=== PATIENT | female | born 1965 | race Caucasian/White ===

== ENCOUNTER 2018-05-28 11:25 | Emergency (ER) | payer MEDICARE, OTHER ==
[~2018-05-28] VITALS: Ht 162.6 cm; Wt 60.0 kg
[~2018-05-28 11:25] MED LIST: ACCU CHEK FASTCLIX XX; ACCU-CHEK; ACCU-CHEK AVIVAP100; AMOXICILLIN500 MG OR; AMOXICILLIN875 MG PO; BENADRY2 EX; BENADRYL 50MG C50 MG OR; BUSPAR15 MG PO; BUSPIRONE10 MG PO; CHERATUSSIN OR; CIPROFLOXACN500 MG PO; CLONAZEP ODT0.25 MG OR; CLONAZEPAM0.5 MG PO; CLONAZEPAM1 MG PO; FLUOXETINE20 MG PO; FLUOXETINE40 MG PO; GABAPENTIN300 MG PO; GLUCOSE TEST STRIPS; HUMALOG100 UNIT/M; HUMULIN 70/30 SC; HUMULIN PEN SC; HUMULIN R1 M1 SC; HYDROCORTISO2.51 EX; HYDROXYZ HCL25 MG PO; LANCETS SC; LANTUS100 UNIT/M SC; LEVEMIR1000 UNITS SC; LISINOPRIL2.5 MG PO; LORAZEPAM1 MG PO; MEDDOSEPAK PO; ONE TOUCH ULTRA 100 SC; PEN NEEDLES SC; PROZAC20 MG PO; SOLU-MEDROL125 MG IM; TRIAMCINOLON0.11 EX; TYLENOL # 31 TA1 PO; VENTOLIN HFA IN; ZOFRAN ODT4 MG OR; [UNRECOGNIZED DRUG - REMARK]
[2018-05-28] MEDS ORDERED: FLUOXETINE10 M2 PO (11:55)
[2018-05-28] MEDS ORDERED: ATORVASTATIN CA10 MG PO (11:55)
[2018-05-28] MEDS ORDERED: ASPIRIN 81 LOW81 MG PO (11:56)
[2018-05-28] MEDS ORDERED: SINGULAIR10 MG PO (11:57)
[2018-05-28] MEDS ORDERED: TRAZODONE50 MG PO (11:57)
[2018-05-28] MEDS ORDERED: NOVOLIN R100 UNIT/M (11:58)
[2018-05-28 12:14] LABS: HEMATOCRIT 37.7 % (37.0-47.0); HEMOGLOBIN 12.3 g/dl (12.0-16.0); IMMATURE GRANULOCYTES 0.4 % (0.0-5.0); MEAN CELL VOLUME 94.3 fL CALC (80.0-100.0); MEAN CORPUSCULAR HGB 30.8 pG CALC (26.0-32.0); MEAN CORPUSCULAR HGB CONC 32.6 g/L CALC (32.0-36.0); NEUT# 10.72 thou/uL (2.00-7.15); RED CELL DISTRI WIDTH 14.1 % (11.5-15.5)
[2018-05-28 12:28] LABS: ALBUMIN 4.3 g/dL (3.2-5.0); ANION GAP 23 (6-22 (CALC)); BILIRUBIN, TOTAL 0.8 mg/dL (0.0-1.4); BUN 14 mg/dL (7-17); BUN/CREATININE RATIO 18 (12-20 (CALC)); CARBON DIOXIDE 21 mmol/l (22-30); CHLORIDE 99 mmol/l (95-108); CREATININE 0.7 mg/dL (0.5-1.0); GFR > 60 ML/MIN (>=60 (CALC)); GFR FOR AFR.AMER. > 60 ML/MIN (>=60 (CALC)); POTASSIUM 3.8 mmol/l (3.5-5.1); SGPT/ALT 77 u/l (9-52); SODIUM 140 mmol/l (137-146); TOTAL PROTEIN 7.5 g/dL (6.3-8.2)
[2018-05-28 12:30] LABS: ALKALINE PHOSPHATASE 134 u/l (38-126); SGOT/AST 72 u/l (14-36)
[2018-05-28 13:24] LABS: URINE BLOOD DIPSTICK TRACE-INTACT (NEGATIVE); URINE COLOR YELLOW; URINE GLUCOSE - DIPSTICK >=1000 mg/dL (NEGATIVE); URINE KETONE 40 mg/dL (NEGATIVE); URINE LEUK ESTERASE NEGATIVE (NEGATIVE); URINE NITRITE - DIPSTICK NEGATIVE (Negative); URINE PH 5.5 (4.5-8.0); URINE PROTEIN - DIPSTICK NEGATIVE (NEG-TRACE); URINE UROBILINOGEN - DIPSTICK 0.2 E.U./dL (0.2)
[2018-05-28 13:32] LABS: URINE BILIRUBIN - DIPSTICK SMALL (NEGATIVE); URINE CLARITY CLEAR
[2018-05-28 14:05] VITALS: BP 121/58
== END 2018-05-28 14:05 | disposition home or self-care (01) ==
LOC: ED 11:25
PROVIDERS: Family Medicine
PROC: 2W3VXYZ Immobilization of Left Toe using Other Device (ICD-10-PCS; principal; 2018-05-28)
DX: E11.65 Type 2 diabetes mellitus with hyperglycemia (principal); S92.512A Displaced fracture of proximal phalanx of left lesser toe(s), initial encounter for closed fracture; I25.2 Old myocardial infarction; F17.210 Nicotine dependence, cigarettes, uncomplicated; W19.XXXA Unspecified fall, initial encounter; Z79.4 Long term (current) use of insulin

== ENCOUNTER 2018-11-01 21:43 | Emergency (ER) | payer MEDICARE, MEDICAID ==
[~2018-11-01 21:43] MED LIST changes: +ASPIRIN 81 LOW81 MG PO; +ATORVASTATIN CA10 MG PO; +FLUOXETINE10 M2 PO; +NOVOLIN R100 UNIT/M; +SINGULAIR10 MG PO; +TRAZODONE50 MG PO
== END 2018-11-01 21:55 | disposition left against medical advice (07) ==
LOC: ED 21:43 → LWOBS 21:55
DX: Z91.19 Patient's noncompliance with other medical treatment and regimen (principal)

== ENCOUNTER 2018-12-02 15:57 | Emergency (ER) | payer MEDICARE, MEDICAID ==
[~2018-12-02] VITALS: Ht 162.6 cm; Wt 58.0 kg
[2018-12-02 17:11] LABS: HEMATOCRIT 39.9 % (37.0-47.0); IMMATURE GRANULOCYTES 0.4 % (0.0-5.0); MEAN CELL VOLUME 94.8 fL CALC (80.0-100.0); MEAN CORPUSCULAR HGB 30.9 pG CALC (26.0-32.0); MEAN CORPUSCULAR HGB CONC 32.6 g/L CALC (32.0-36.0); NEUT# 11.9 thou/uL (2.00-7.15); RED BLOOD COUNT 4.21 mill/uL (4.20-5.60); RED CELL DISTRI WIDTH 14.7 % (11.5-15.5)
[2018-12-02 17:28] LABS: ALBUMIN 4.7 g/dL (3.2-5.0); ALKALINE PHOSPHATASE 172 u/l (38-126); ANION GAP 16 (6-22 (CALC)); BILIRUBIN, TOTAL 0.5 mg/dL (0.0-1.4); BUN 7 mg/dL (7-17); BUN/CREATININE RATIO 11 (12-20 (CALC)); CARBON DIOXIDE 25 mmol/l (22-30); CHLORIDE 101 mmol/l (95-108); CREATININE 0.6 mg/dL (0.5-1.0); GFR > 60 ML/MIN (>=60 (CALC)); GFR FOR AFR.AMER. > 60 ML/MIN (>=60 (CALC)); SGOT/AST 93 u/l (14-36); SODIUM 138 mmol/l (137-146)
[2018-12-02] MEDS ORDERED: TORADOL PO (18:09)
[2018-12-02] MEDS ORDERED: BENTYL10 MG PO (18:09)
[2018-12-02 18:10] VITALS: BP 141/79
== END 2018-12-02 18:26 | disposition home or self-care (01) ==
LOC: ED 15:57
PROVIDERS: Emergency Medicine
DX: G89.18 Other acute postprocedural pain (principal); R10.31 Right lower quadrant pain; E11.9 Type 2 diabetes mellitus without complications; I25.2 Old myocardial infarction; F17.200 Nicotine dependence, unspecified, uncomplicated

== ENCOUNTER → 2018-12-11 | Outpatient (REF) | payer MEDICARE, MEDICAID ==
[~2018-12-11] MED LIST changes: +BENTYL10 MG PO; +TORADOL PO
[2018-12-11 13:00] LABS: URINE BILIRUBIN - DIPSTICK NEGATIVE (NEGATIVE); URINE BLOOD DIPSTICK TRACE-INTACT (NEGATIVE); URINE CLARITY CLEAR; URINE COLOR YELLOW; URINE GLUCOSE - DIPSTICK >=1000 mg/dL (NEGATIVE); URINE KETONE NEGATIVE (NEGATIVE); URINE LEUK ESTERASE NEGATIVE (Negative); URINE NITRITE - DIPSTICK NEGATIVE (Negative); URINE PROTEIN - DIPSTICK NEGATIVE (NEG-TRACE); URINE UROBILINOGEN - DIPSTICK 0.2 E.U./dL (0.2)
[2018-12-11 13:12] LABS: HEMATOCRIT 35.2 % (37.0-47.0); HEMOGLOBIN 11.1 g/dl (12.0-16.0); IMMATURE GRANULOCYTES 0.5 % (0.0-5.0); MEAN CELL VOLUME 94.6 fL CALC (80.0-100.0); MEAN CORPUSCULAR HGB 29.8 pG CALC (26.0-32.0); MEAN CORPUSCULAR HGB CONC 31.5 g/L CALC (32.0-36.0); NEUT# 10.1 thou/uL (2.00-7.15); RED BLOOD COUNT 3.72 mill/uL (4.20-5.60); RED CELL DISTRI WIDTH 14.2 % (11.5-15.5)
[2018-12-11 13:28] LABS: ALBUMIN 4.2 g/dL (3.2-5.0); BUN 14 mg/dL (7-17); CARBON DIOXIDE 29 mmol/l (22-30); CHLORIDE 97 mmol/l (95-108); GFR 58 ML/MIN (>=60 (CALC)); GFR FOR AFR.AMER. > 60 ML/MIN (>=60 (CALC)); POTASSIUM 4.8 mmol/l (3.5-5.1); SODIUM 137 mmol/l (137-146)
== END | disposition home or self-care (01) ==
LOC: LAB 12:39
PROVIDERS: ATTEND Internal Medicine Nephrology
DX: N18.2 Chronic kidney disease, stage 2 (mild) (principal); D63.1 Anemia in chronic kidney disease; N08 Glomerular disorders in diseases classified elsewhere; R80.9 Proteinuria, unspecified; N25.81 Secondary hyperparathyroidism of renal origin

== ENCOUNTER 2019-01-20 10:59 | Emergency (ER) | payer MEDICARE, MEDICAID ==
[~2019-01-20] VITALS: Ht 162.6 cm; Wt 60.0 kg
[2019-01-20 11:28] LABS: HEMATOCRIT 37.5 % (37.0-47.0); HEMOGLOBIN 12.1 g/dl (12.0-16.0); IMMATURE GRANULOCYTES 0.2 % (0.0-5.0); MEAN CELL VOLUME 91.7 fL CALC (80.0-100.0); MEAN CORPUSCULAR HGB 29.6 pG CALC (26.0-32.0); MEAN CORPUSCULAR HGB CONC 32.3 g/L CALC (32.0-36.0); NEUT# 7.63 thou/uL (2.00-7.15); RED BLOOD COUNT 4.09 mill/uL (4.20-5.60); RED CELL DISTRI WIDTH 14.5 % (11.5-15.5)
[2019-01-20 11:43] LABS: ALBUMIN 4.3 g/dL (3.2-5.0); ALKALINE PHOSPHATASE 113 u/l (38-126); ANION GAP 15 (6-22 (CALC)); BILIRUBIN, TOTAL 0.4 mg/dL (0.0-1.4); BUN 10 mg/dL (7-17); BUN/CREATININE RATIO 14 (12-20 (CALC)); CARBON DIOXIDE 25 mmol/l (22-30); CHLORIDE 104 mmol/l (95-108); CREATININE 0.7 mg/dL (0.5-1.0); GFR > 60 ML/MIN (>=60 (CALC)); GFR FOR AFR.AMER. > 60 ML/MIN (>=60 (CALC)); SGOT/AST 76 u/l (14-36); SODIUM 140 mmol/l (137-146); TOTAL PROTEIN 7.4 g/dL (6.3-8.2)
[2019-01-20 11:51] LABS: POTASSIUM 3.5 mmol/l (3.5-5.1)
[2019-01-20 13:21] VITALS: BP 157/77
== END 2019-01-20 13:25 | disposition home or self-care (01) ==
LOC: ED 10:59
PROVIDERS: Family Medicine
DX: E10.649 Type 1 diabetes mellitus with hypoglycemia without coma (principal); F17.200 Nicotine dependence, unspecified, uncomplicated; Z79.4 Long term (current) use of insulin

== ENCOUNTER 2019-02-28 16:23 | Emergency (ER) | payer MEDICARE, MEDICAID ==
[~2019-02-28] VITALS: Ht 162.6 cm; Wt 60.0 kg
[2019-02-28] MEDS ORDERED: LEVEMIR100 UNIT/M SC (16:38)
[2019-02-28 16:54] LABS: HEMATOCRIT 37.7 % (37.0-47.0); HEMOGLOBIN 12.4 g/dl (12.0-16.0); IMMATURE GRANULOCYTES 0.3 % (0.0-5.0); MEAN CELL VOLUME 88.9 fL CALC (80.0-100.0); MEAN CORPUSCULAR HGB 29.2 pG CALC (26.0-32.0); MEAN CORPUSCULAR HGB CONC 32.9 g/L CALC (32.0-36.0); NEUT# 6.33 thou/uL (2.00-7.15); RED BLOOD COUNT 4.24 mill/uL (4.20-5.60); RED CELL DISTRI WIDTH 13.9 % (11.5-15.5)
[2019-02-28 17:06] LABS: ANION GAP 20 (6-22 (CALC)); BUN 14 mg/dL (7-17); BUN/CREATININE RATIO 18 (12-20 (CALC)); CARBON DIOXIDE 20 mmol/l (22-30); CHLORIDE 99 mmol/l (95-108); CREATININE 0.8 mg/dL (0.5-1.0); GFR > 60 ML/MIN (>=60 (CALC)); GFR FOR AFR.AMER. > 60 ML/MIN (>=60 (CALC)); POTASSIUM 3.8 mmol/l (3.5-5.1); SODIUM 135 mmol/l (137-146)
[2019-02-28] MEDS ORDERED: FLUOXETINE20 MG PO (17:22)
[2019-02-28] MEDS ORDERED: LISINOPRIL5 MG PO (17:24)
[2019-02-28] MEDS ORDERED: LAMICTAL150 MG PO (17:24)
[2019-02-28] MEDS ORDERED: TRILEPTAL150 MG PO (17:25)
[2019-02-28] MEDS ORDERED: LAMICTAL100 MG PO (17:25)
[2019-02-28] MEDS ORDERED: MONTELUKAST SOD10 MG PO (17:26)
[2019-02-28] MEDS ORDERED: RANITIDINE150 MG PO (17:26)
[2019-02-28] MEDS ORDERED: LISINOPRIL20 MG PO (17:28)
[2019-02-28] MEDS ORDERED: LORAZEPAM0.5 MG PO (17:29)
[2019-02-28 17:55] VITALS: BP 155/69
== END 2019-02-28 17:55 | disposition home or self-care (01) ==
LOC: ED 16:23
PROVIDERS: Family Medicine
DX: R07.81 Pleurodynia (principal); S20.211A Contusion of right front wall of thorax, initial encounter; R55 Syncope and collapse; W10.9XXA Fall (on) (from) unspecified stairs and steps, initial encounter; Y93.01 Activity, walking, marching and hiking; Y92.009 Unspecified place in unspecified non-institutional (private) residence as the place of occurrence of the external cause; I25.2 Old myocardial infarction; F17.200 Nicotine dependence, unspecified, uncomplicated

== ENCOUNTER 2019-05-29 13:57 | Emergency (ER) | payer MEDICARE, MEDICAID ==
[~2019-05-29] VITALS: Ht 162.6 cm; Wt 58.6 kg
[~2019-05-29 13:57] MED LIST changes: +LAMICTAL100 MG PO; +LAMICTAL150 MG PO; +LISINOPRIL20 MG PO; +LISINOPRIL5 MG PO; +LORAZEPAM0.5 MG PO; +MONTELUKAST SOD10 MG PO; +RANITIDINE150 MG PO; +TRILEPTAL150 MG PO
[2019-05-29] MEDS ORDERED: BACTRIM DS1 TAB PO (14:29)
[2019-05-29] MEDS ORDERED: CEPHALEXIN500 M1 PO (14:29)
[2019-05-29 14:42] VITALS: BP 151/70
[2019-05-30] MEDS ORDERED: LORTAB 1010 MG PO (15:01)
== END 2019-05-29 14:43 | disposition home or self-care (01) ==
LOC: ED 13:57
DX: S20.369A Insect bite (nonvenomous) of unspecified front wall of thorax, initial encounter (principal); L03.311 Cellulitis of abdominal wall; E11.9 Type 2 diabetes mellitus without complications; I25.2 Old myocardial infarction; F17.210 Nicotine dependence, cigarettes, uncomplicated; W57.XXXA Bitten or stung by nonvenomous insect and other nonvenomous arthropods, initial encounter

== ENCOUNTER 2019-05-30 13:15 | Emergency (ER) | payer MEDICARE, MEDICAID ==
[~2019-05-30] VITALS: Ht 162.6 cm; Wt 58.9 kg
[~2019-05-30 13:15] MED LIST changes: +BACTRIM DS1 TAB PO; +CEPHALEXIN500 M1 PO
[2019-05-30 14:09] LABS: HEMATOCRIT 36.9 % (37.0-47.0); HEMOGLOBIN 12.2 g/dl (12.0-16.0); IMMATURE GRANULOCYTES 0.4 % (0.0-5.0); MEAN CELL VOLUME 90.7 fL CALC (80.0-100.0); MEAN CORPUSCULAR HGB CONC 33.1 g/L CALC (32.0-36.0); NEUT# 10.93 thou/uL (2.00-7.15); RED BLOOD COUNT 4.07 mill/uL (4.20-5.60); RED CELL DISTRI WIDTH 15.2 % (11.5-15.5)
[2019-05-30 14:20] LABS: ALBUMIN 4.5 g/dL (3.2-5.0); ANION GAP 18 (6-22 (CALC)); BUN 12 mg/dL (7-17); BUN/CREATININE RATIO 14 (12-20 (CALC)); CARBON DIOXIDE 23 mmol/l (22-30); CHLORIDE 100 mmol/l (95-108); CREATININE 0.9 mg/dL (0.5-1.0); GFR > 60 ML/MIN (>=60 (CALC)); GFR FOR AFR.AMER. > 60 ML/MIN (>=60 (CALC)); POTASSIUM 3.7 mmol/l (3.5-5.1); SGOT/AST 32 u/l (14-36); SODIUM 136 mmol/l (137-146); TOTAL PROTEIN 8.1 g/dL (6.3-8.2)
[2019-05-30 14:29] LABS: ALKALINE PHOSPHATASE 190 u/l (38-126); BILIRUBIN, TOTAL 0.7 mg/dL (0.0-1.4)
[2019-05-30 14:30] LABS: MYOGLOBIN 33 ng/mL (0 - 62)
[2019-05-30] MEDS ORDERED: LORTAB 1010 MG PO (15:01)
[2019-05-30 15:08] VITALS: BP 127/61
[2019-05-31] MEDS ORDERED: LISINOPRIL5 MG PO (19:19)
[2019-05-31] MEDS ORDERED: ATORVASTATIN CA20 MG PO (19:20)
[2019-05-31] MEDS ORDERED: FLUOXETINE HCL20 MG PO (19:21)
[2019-05-31] MEDS ORDERED: BUSPAR15 M1 PO (19:21)
[2019-05-31] MEDS ORDERED: FLUOXETINE20 MG PO (19:22)
[2019-05-31] MEDS ORDERED: GABAPENTIN400 M2 PO (19:23)
[2019-05-31] MEDS ORDERED: LEVEMIR100 UNIT/M SC (19:24)
== END 2019-05-30 16:11 | disposition home or self-care (01) ==
LOC: ED 13:15
PROVIDERS: Emergency Medicine
PROC: 0H97XZZ Drainage of Abdomen Skin, External Approach (ICD-10-PCS; principal; 2019-05-30)
DX: L02.211 Cutaneous abscess of abdominal wall (principal); R42 Dizziness and giddiness; H53.8 Other visual disturbances; E11.9 Type 2 diabetes mellitus without complications; I25.2 Old myocardial infarction; Z95.5 Presence of coronary angioplasty implant and graft; F17.200 Nicotine dependence, unspecified, uncomplicated

== ENCOUNTER 2019-05-31 18:53 | Emergency (ER) | payer MEDICARE, MEDICAID ==
[~2019-05-31] VITALS: Ht 162.6 cm; Wt 60.0 kg
[~2019-05-31 18:53] MED LIST changes: +LORTAB 1010 MG PO
[2019-05-31] MEDS ORDERED: LISINOPRIL5 MG PO (19:19)
[2019-05-31] MEDS ORDERED: ATORVASTATIN CA20 MG PO (19:20)
[2019-05-31] MEDS ORDERED: FLUOXETINE HCL20 MG PO (19:21)
[2019-05-31] MEDS ORDERED: BUSPAR15 M1 PO (19:21)
[2019-05-31] MEDS ORDERED: FLUOXETINE20 MG PO (19:22)
[2019-05-31] MEDS ORDERED: GABAPENTIN400 M2 PO (19:23)
[2019-05-31] MEDS ORDERED: LEVEMIR100 UNIT/M SC (19:24)
[2019-05-31 19:33] VITALS: BP 114/58
== END 2019-05-31 19:33 | disposition home or self-care (01) ==
LOC: ED 18:53
DX: Z48.01 Encounter for change or removal of surgical wound dressing (principal); E11.9 Type 2 diabetes mellitus without complications; F17.210 Nicotine dependence, cigarettes, uncomplicated; Z79.4 Long term (current) use of insulin

== ENCOUNTER 2019-06-03 11:35 | Emergency (ER) | payer MEDICARE, MEDICAID ==
[~2019-06-03] VITALS: Ht 162.6 cm; Wt 27.0 kg
[~2019-06-03 11:35] MED LIST changes: +ATORVASTATIN CA20 MG PO; +BUSPAR15 M1 PO; +FLUOXETINE HCL20 MG PO; +GABAPENTIN400 M2 PO; +LEVEMIR100 UNIT/M SC
[2019-06-03 12:54] VITALS: BP 115/63
== END 2019-06-03 13:14 | disposition home or self-care (01) ==
LOC: ED 11:35
DX: Z48.01 Encounter for change or removal of surgical wound dressing (principal)

== ENCOUNTER 2019-06-05 18:34 | Emergency (ER) | payer MEDICARE, MEDICAID ==
[~2019-06-05] VITALS: Ht 162.6 cm; Wt 55.0 kg
[2019-06-05 18:53] VITALS: BP 120/76
== END 2019-06-05 18:53 | disposition home or self-care (01) ==
LOC: ED 18:34
DX: Z48.01 Encounter for change or removal of surgical wound dressing (principal); E11.9 Type 2 diabetes mellitus without complications; F17.200 Nicotine dependence, unspecified, uncomplicated

== ENCOUNTER 2019-09-16 21:08 | Emergency (ER) | payer MEDICARE, MEDICAID ==
[~2019-09-16] VITALS: Ht 162.6 cm; Wt 56.8 kg
[2019-09-16] MEDS ORDERED: ASPIRINCHW 81MG PO (21:25)
[2019-09-16] MEDS ORDERED: MOTRIN400 MG PO (22:01)
[2019-09-16] MEDS ORDERED: KEFLEX500 M1 PO (22:01)
[2019-09-16 22:15] VITALS: BP 165/62
== END 2019-09-16 22:18 | disposition home or self-care (01) ==
LOC: ED 21:08
DX: S93.401A Sprain of unspecified ligament of right ankle, initial encounter (principal); S90.511A Abrasion, right ankle, initial encounter; E11.9 Type 2 diabetes mellitus without complications; I25.2 Old myocardial infarction; F17.210 Nicotine dependence, cigarettes, uncomplicated; W22.8XXA Striking against or struck by other objects, initial encounter; Y92.009 Unspecified place in unspecified non-institutional (private) residence as the place of occurrence of the external cause; Z79.4 Long term (current) use of insulin

== ENCOUNTER 2019-12-30 | Emergency (ER) | payer MEDICARE, MEDICAID ==
[~2019-12-30] MED LIST changes: +ASPIRINCHW 81MG PO; +KEFLEX500 M1 PO; +MOTRIN400 MG PO
[2019-12-30] MEDS ORDERED: ULTRAM50 M1 PO (22:40)
== END 2019-12-30 23:05 | disposition home or self-care (01) ==
PROC: 0HQ0XZZ Repair Scalp Skin, External Approach (ICD-10-PCS; principal; 2019-12-30)
DX: S01.01XA Laceration without foreign body of scalp, initial encounter (principal); E11.9 Type 2 diabetes mellitus without complications; I25.2 Old myocardial infarction; F17.210 Nicotine dependence, cigarettes, uncomplicated; Y92.89 Other specified places as the place of occurrence of the external cause; W01.198A Fall on same level from slipping, tripping and stumbling with subsequent striking against other object, initial encounter; Z79.4 Long term (current) use of insulin; Z95.5 Presence of coronary angioplasty implant and graft

== ENCOUNTER 2020-01-02 19:19 | Emergency (ER) | payer MEDICARE, MEDICAID ==
[~2020-01-02 19:19] MED LIST changes: +ULTRAM50 M1 PO
[2020-01-02 20:35] VITALS: BP 107/63
== END 2020-01-02 20:35 | disposition home or self-care (01) ==
LOC: ED 19:19
DX: S01.01XD Laceration without foreign body of scalp, subsequent encounter (principal); X58.XXXD Exposure to other specified factors, subsequent encounter; E11.9 Type 2 diabetes mellitus without complications; F17.210 Nicotine dependence, cigarettes, uncomplicated; Z79.4 Long term (current) use of insulin

== ENCOUNTER 2020-01-09 | Emergency (ER) | payer MEDICARE, MEDICAID | END 2020-01-09 15:45 | disposition home or self-care (01) | DX: S01.01XD Laceration without foreign body of scalp, subsequent encounter (principal); X58.XXXD Exposure to other specified factors, subsequent encounter; E11.9 Type 2 diabetes mellitus without complications; F17.210 Nicotine dependence, cigarettes, uncomplicated; Z79.4 Long term (current) use of insulin ==

== ENCOUNTER 2020-02-04 | Emergency (ER) | payer MEDICARE, MEDICAID ==
[2020-02-04] MEDS ORDERED: CLONAZEPAM1 MG PO (15:31)
[2020-02-04] MEDS ORDERED: MOTRIN400 MG PO ×2 (16:50)
[2020-02-04] MEDS ORDERED: TRAMADOL HYDROC50 M1 PO ×2 (16:50)
== END 2020-02-04 17:18 | disposition home or self-care (01) ==
DX: S22.31XA Fracture of one rib, right side, initial encounter for closed fracture (principal); E11.9 Type 2 diabetes mellitus without complications; F17.200 Nicotine dependence, unspecified, uncomplicated; I25.2 Old myocardial infarction; W01.190A Fall on same level from slipping, tripping and stumbling with subsequent striking against furniture, initial encounter; Y92.009 Unspecified place in unspecified non-institutional (private) residence as the place of occurrence of the external cause; Z79.4 Long term (current) use of insulin; Z95.5 Presence of coronary angioplasty implant and graft

== ENCOUNTER 2020-02-05 | Emergency (ER) | payer MEDICARE, MEDICAID ==
[~2020-02-05] MED LIST changes: +TRAMADOL HYDROC50 M1 PO
== END 2020-02-06 01:50 | disposition home or self-care (01) ==
DX: R07.89 Other chest pain (principal); E11.9 Type 2 diabetes mellitus without complications; I25.2 Old myocardial infarction; F17.200 Nicotine dependence, unspecified, uncomplicated; S22.31XD Fracture of one rib, right side, subsequent encounter for fracture with routine healing; X58.XXXD Exposure to other specified factors, subsequent encounter; Z79.4 Long term (current) use of insulin; Z95.5 Presence of coronary angioplasty implant and graft

== ENCOUNTER 2020-03-06 18:45 | Inpatient (IN) | payer MEDICARE, MEDICAID ==
[~2020-03-06] VITALS: Ht 162.6 cm; Wt 58.0 kg
--- NOTE | 2020-03-06 18:49 | NUR ---
BY WC TO ROOM
--- NOTE | 2020-03-06 19:58 | NUR ---
DIFFICULT IV STICK. IV STARTED BY Daniel MONTES. BLOOD DRAWN. SWABS OBTAINED. FLUIDS STARTED AND MEDS GIVEN. SMELL OF ACETONE.
[2020-03-06 20:02] LABS: HEMATOCRIT 38.2 % (37.0-47.0); HEMOGLOBIN 11.7 g/dl (12.0-16.0); IMMATURE GRANULOCYTES 0.5 % (0.0-5.0); MEAN CELL VOLUME 93.9 fL CALC (80.0-100.0); MEAN CORPUSCULAR HGB 28.7 pG CALC (26.0-32.0); MEAN CORPUSCULAR HGB CONC 30.6 g/dL CAL (32.0-36.0); NEUT# 12.63 thou/uL (2.00-7.15); RED BLOOD COUNT 4.07 mill/uL (4.20-5.60); RED CELL DISTRI WIDTH 14.9 % (11.5-15.5)
--- NOTE | 2020-03-06 20:10 | NUR ---
LINDA LEA. XRAYS AT BEDSIDE.
--- NOTE | 2020-03-06 20:13 | NUR ---
PT REFUSED CT OF HEAD SHE HAD ONE A FEW WEEKS AGO.
[2020-03-06 20:28] LABS: ALBUMIN 4.7 g/dL (3.2-5.0); ALKALINE PHOSPHATASE 157 u/l (38-126); BUN 25 mg/dL (7-17); CHLORIDE 92 mmol/l (95-108); SGOT/AST 34 u/l (14-36); SODIUM 130 mmol/l (137-146)
[2020-03-06 20:37] LABS: BUN/CREATININE RATIO 14 (12-20 (CALC)); CREATININE 1.8 mg/dL (0.5-1.0); GFR 29 ML/MIN (>=60 (CALC)); GFR FOR AFR.AMER. 35 ML/MIN (>=60 (CALC))
[2020-03-06 20:38] LABS: ANION GAP 39 (6-22 (CALC)); BILIRUBIN, TOTAL 0.6 mg/dL (0.0-1.4); CARBON DIOXIDE < 5 mmol/l (22-30); POTASSIUM 5.7 mmol/l (3.5-5.1)
[2020-03-06 20:40] LABS: MYOGLOBIN 35 ng/mL (0 - 62)
--- NOTE | 2020-03-06 20:49 | NUR ---
AT BEDSIDE TO DISCUSS RESULTS OF TESTS.
--- NOTE | 2020-03-06 21:28 | NUR ---
ATTEMPTED TO CALL REPORT. NURSE WILL CALL BACK.
--- NOTE | 2020-03-06 21:31 | NUR ---
REPORT TO CHARITY DUMONT/ICU
--- NOTE | 2020-03-06 21:36 | NUR ---
S.O. TO THE HOUSE...AWARE OF COVID VISITING RESTRICTIONS. PT TO FLOOR WITH NS INFUSING. INSULIN NOT PROFILED. PT TRANSFERED TO FLOOR VIA STRETCHER WITH FLUIDS RUNNING, PORTABLE MONITOR, AND MASK ON. PT TRANSFERRED SELF TO BED UPON ARRIVAL.
--- NOTE | 2020-03-06 21:36 | NUR ---
Admission Note Report Given to: SBAR PRINTED TO FLOOR Transported by: Wheelchair X Stretcher Transported with: X Nurse Transporter X Patent IV O2 X Straightener And Aligner Location: X ICU MS2
--- NOTE | 2020-03-06 21:40 | NUR ---
TO ICU ROOM 2 VIA STRETCHER WITH 2ND LITER OF NS INFUSING THROUGH IV OF RIGHT FOREARM-TOLERATING WELL. PT ALERT BUT APPEARS SOMEWHAT GROGGY. COOPERATIVE WITH REDIRECTIONDENIES PAIN. NO SOB NOTED. WEARING SHORTS. ONLY COMPLAINT WAS THAT SHE IS THIRSTY AND COLD
[2020-03-06 21:41] LABS: URINE BLOOD DIPSTICK SMALL (NEGATIVE); URINE COLOR YELLOW; URINE GLUCOSE - DIPSTICK >=1000 mg/dL (NEGATIVE); URINE KETONE 40 mg/dL (NEGATIVE); URINE LEUK ESTERASE NEGATIVE (NEGATIVE); URINE NITRITE - DIPSTICK NEGATIVE (Negative); URINE PROTEIN - DIPSTICK 100 mg/dL (NEG-TRACE); URINE SPECIFIC GRAVITY >=1.030; URINE UROBILINOGEN - DIPSTICK 0.2 E.U./dL (0.2)
[2020-03-06 21:44] LABS: URINE BILIRUBIN - DIPSTICK NEGATIVE (NEGATIVE)
[2020-03-06 21:45] VITALS: BP 168/74
[2020-03-06 21:45] LABS: BARBITURATES NEGATIVE (NEGATIVE); COCAINE NEGATIVE (NEGATIVE); METHADONE NEGATIVE (NEGATIVE); OXCYCODONE NEGATIVE (NEGATIVE); TETRAHYDROCANNABIONOL NEGATIVE (NEGATIVE); TRICYLIC ANTIDEPRESSANTS NEGATIVE (NEGATIVE)
[2020-03-06 21:54] LABS: URINE SQUAMOUS EPITHELIAL CELL MODERATE EPI/hpf (0-FEW)
[2020-03-06 22:00] VITALS: BP 1117/58
[2020-03-06 22:15] VITALS: BP 120/62
[2020-03-06 22:24] LABS: CREATININE 1.9 mg/dL (0.5-1.0)
[2020-03-06 22:30] VITALS: BP 118/58
[2020-03-06 22:32] LABS: POTASSIUM 5.2 mmol/l (3.5-5.1)
[2020-03-06 23:00] VITALS: BP 109/54
--- NOTE | 2020-03-06 23:00 | NUR ---
BEDRESTING. DOZING. NO DISTRESS NOTED.INSULIN DRIP STARTED AND INFUSING RX-TOLERATING WELL
[2020-03-07] VITALS (10 sets, daily range): BP systolic 93–126; BP diastolic 54–64
--- NOTE | 2020-03-07 01:00 | NUR ---
INSULIN DRIP TITRATED RX. NO DISTRESS NOTED. SNOORING. DENIES PAIN
--- NOTE | 2020-03-07 01:30 | NUR ---
BLOOD DRAWN BY LAB-TOLRATED WELL
[2020-03-07 01:50] LABS: CREATININE 1.6 mg/dL (0.5-1.0); POTASSIUM 4.2 mmol/l (3.5-5.1)
--- NOTE | 2020-03-07 03:30 | NUR ---
BEDRESTING. SNOORING. INSULIN DRIP CONTINUES RX. HAS NOT VOIDED SINCE ARRIVAL TO ICU
--- NOTE | 2020-03-07 05:30 | NUR ---
BLOOD DRAWN BY LAB. AWAKE. SPEECH CLEAR. COOPERATIVE. WATCHING TV RX. ACCUCHEK LESS THAN 100. PT STATES "WELL... TIME TO GO HOME....." NO DISTRESS NOTED
[2020-03-07 05:48] LABS: CREATININE 1.3 mg/dL (0.5-1.0); POTASSIUM 3.9 mmol/l (3.5-5.1)
--- NOTE | 2020-03-07 06:28 | NUR ---
NS INCREASED TO 50ML/HR.
--- NOTE | 2020-03-07 06:45 | NUR ---
REPORT RECEIVED FROM Micha SHARMA RN. CARE ASSUMED.
--- NOTE | 2020-03-07 07:20 | NUR ---
PT RESTING IN BED AWAKE. PT IS ALERT AND ORIENTED X3. SHIFT ASSESSMENT COMPLTED AT THIS TIME. IV PATNET X1. CALL LIGHT IN REACH. WILL CONTINUE TO MONITOR.
--- NOTE | 2020-03-07 07:55 | NUR ---
PT SET UP FOR AM MEAL.
--- NOTE | 2020-03-07 09:20 | NUR ---
DR WELLS AT BEDSIDE
[2020-03-07] MEDS ORDERED: ZITHROMAX250 MG PO (09:37)
--- NOTE | 2020-03-07 10:25 | NUR ---
IV site discontinued, cath intact. No edema , no redness, voices no discomfort.
--- NOTE | 2020-03-07 10:30 | NUR ---
discharge instructions reviewed with patient. patient verbalized understanding.
--- NOTE | 2020-03-07 10:35 | NUR ---
Discharge instructions given. Patient verbalizes understanding of same. Discharged in stable condition via Wheelchair to Home with staff. All belongings sent with pt.
== END 2020-03-07 10:35 | disposition home or self-care (01) | DRG 639 ==
LOC: ED 18:45 → ED-I 20:44 → ED 21:05 → ICU 21:06
PROVIDERS: Emergency Medicine; ADMIT Internal Medicine; ATTEND Internal Medicine
DX: E10.10 Type 1 diabetes mellitus with ketoacidosis without coma (principal); J40 Bronchitis, not specified as acute or chronic; E86.0 Dehydration; E87.5 Hyperkalemia; E10.22 Type 1 diabetes mellitus with diabetic chronic kidney disease; N18.9 Chronic kidney disease, unspecified; F41.9 Anxiety disorder, unspecified; F31.9 Bipolar disorder, unspecified; F17.210 Nicotine dependence, cigarettes, uncomplicated; I25.2 Old myocardial infarction; Z95.5 Presence of coronary angioplasty implant and graft; Z79.4 Long term (current) use of insulin; Z72.89 Other problems related to lifestyle; Z20.828 Contact with and (suspected) exposure to other viral communicable diseases

== ENCOUNTER 2020-04-15 20:02 | Observation (INO) | payer MEDICARE, MEDICAID ==
[~2020-04-15] VITALS: Ht 162.6 cm; Wt 56.0 kg
[~2020-04-15 20:02] MED LIST changes: +ZITHROMAX250 MG PO
--- NOTE | 2020-04-15 20:13 | NUR ---
to room 12 via wc. notified of pt's status.
--- NOTE | 2020-04-15 21:20 | NUR ---
PT HAS SM AMT OF GASTRIC LIQUID EMESIS WITHOUT FOOD PARTICULATE SEEN
[2020-04-15 21:23] LABS: HEMATOCRIT 34.8 % (37.0-47.0); HEMOGLOBIN 11.6 g/dl (12.0-16.0); IMMATURE GRANULOCYTES 0.4 % (0.0-5.0); MEAN CORPUSCULAR HGB 28.7 pG CALC (26.0-32.0); MEAN CORPUSCULAR HGB CONC 33.3 g/dL CAL (32.0-36.0); NEUT# 6.22 thou/uL (2.00-7.15); RED BLOOD COUNT 4.04 mill/uL (4.20-5.60); RED CELL DISTRI WIDTH 14.3 % (11.5-15.5)
[2020-04-15 21:34] LABS: MEAN CELL VOLUME 86.1 fL CALC (80.0-100.0)
[2020-04-15 22:11] LABS: ALKALINE PHOSPHATASE 132 u/l (38-126); AMYLASE 50 u/l (30-110); BILIRUBIN, TOTAL 0.6 mg/dL (0.0-1.4); BUN 8 mg/dL (7-17); BUN/CREATININE RATIO 15 (12-20 (CALC)); CREATININE 0.5 mg/dL (0.5-1.0); GFR > 60 ML/MIN (>=60 (CALC)); GFR FOR AFR.AMER. > 60 ML/MIN (>=60 (CALC)); LIPASE 27 u/l (23-300); POTASSIUM 4.1 mmol/l (3.5-5.1); SGOT/AST 32 u/l (14-36)
[2020-04-15 22:14] LABS: ANION GAP 14 (6-22 (CALC)); CARBON DIOXIDE 28 mmol/l (22-30); CHLORIDE 85 mmol/l (95-108); SODIUM 123 mmol/l (137-146)
--- NOTE | 2020-04-15 22:16 | NUR ---
W/P/D SKIN NO N/V GCS 15 NO FOCAL WEAKNESSES
[2020-04-15 22:23] LABS: MYOGLOBIN 109 ng/mL (0 - 62)
--- NOTE | 2020-04-15 23:53 | NUR ---
W/P/D SKIN NO FURTHER N/V.NOR ABD DISCOMFORT SR NO ECTOPY
--- NOTE | 2020-04-16 00:35 | NUR ---
PT OOB AMB TO RR TO VOID 1200CC YELLOW CLEASR URINE SPEC TO LAB
[2020-04-16 00:50] LABS: URINE BILIRUBIN - DIPSTICK NEGATIVE (NEGATIVE); URINE BLOOD DIPSTICK TRACE-LYSED (NEGATIVE); URINE COLOR YELLOW; URINE GLUCOSE - DIPSTICK >=1000 mg/dL (NEGATIVE); URINE KETONE 40 mg/dL (NEGATIVE); URINE LEUK ESTERASE NEGATIVE (NEGATIVE); URINE NITRITE - DIPSTICK NEGATIVE (Negative); URINE PROTEIN - DIPSTICK 30 mg/dL (NEG-TRACE); URINE SPECIFIC GRAVITY 1.015
[2020-04-16 00:58] LABS: URINE BACTERIA FEW hpf; URINE EPITHELIAL CELLS FEW EPI/hpf (0-FEW)
--- NOTE | 2020-04-16 01:35 | NUR ---
ACCU CK 350 DR iPtts ONFORMED NNO
--- NOTE | 2020-04-16 03:00 | NUR ---
ASLEEP IN NAD W/P/D SKIN SR WITHOUT ST ST CHANGES NO ECTOPY GCS 15 UNCHANGED NO N/V NOR STOMACH COMPLAINTS
[2020-04-16 04:15] VITALS: BP 107/55
--- NOTE | 2020-04-16 04:20 | NUR ---
PT STATES SHE WILL NOT STAY DR Pitts INFORMED DR Gisselle LOPES PT AND ERIKA SELF FORM PT IS ARRANGING HER TRANSPORT HOME A/OX3 W/P/D SKIN SR NO ECTOPY
== END 2020-04-16 04:20 | disposition left against medical advice (07) ==
LOC: ED 20:02 → ED-I 04-16 00:10 → ED 04-16 00:45 → ED-I 04-16 00:46
PROVIDERS: Emergency Medicine; ADMIT Internal Medicine; ATTEND Internal Medicine
DX: R11.2 Nausea with vomiting, unspecified (principal); E11.65 Type 2 diabetes mellitus with hyperglycemia; J18.9 Pneumonia, unspecified organism; E87.1 Hypo-osmolality and hyponatremia; F17.210 Nicotine dependence, cigarettes, uncomplicated; Z79.4 Long term (current) use of insulin; Z20.828 Contact with and (suspected) exposure to other viral communicable diseases
CPT/HCPCS: Q9967; S0164

== ENCOUNTER 2020-05-01 15:51 | Emergency (ER) | payer MEDICARE, MEDICAID ==
[~2020-05-01] VITALS: Ht 162.6 cm; Wt 57.7 kg
[2020-05-01 16:46] LABS: HEMATOCRIT 37.4 % (37.0-47.0); HEMOGLOBIN 12.4 g/dl (12.0-16.0); IMMATURE GRANULOCYTES 0.4 % (0.0-5.0); MEAN CELL VOLUME 86.4 fL CALC (80.0-100.0); MEAN CORPUSCULAR HGB 28.6 pG CALC (26.0-32.0); MEAN CORPUSCULAR HGB CONC 33.2 g/dL CAL (32.0-36.0); NEUT# 8.18 thou/uL (2.00-7.15); RED BLOOD COUNT 4.33 mill/uL (4.20-5.60); RED CELL DISTRI WIDTH 13.8 % (11.5-15.5)
[2020-05-01 16:59] LABS: ALBUMIN 4.8 g/dL (3.2-5.0); ALKALINE PHOSPHATASE 114 u/l (38-126); ANION GAP 17 (6-22 (CALC)); BILIRUBIN, TOTAL 0.3 mg/dL (0.0-1.4); BUN 6 mg/dL (7-17); BUN/CREATININE RATIO 10 (12-20 (CALC)); CARBON DIOXIDE 24 mmol/l (22-30); CHLORIDE 87 mmol/l (95-108); CREATININE 0.6 mg/dL (0.5-1.0); ETHYL ALCOHOL 138 mg/dl (0-30); GFR > 60 ML/MIN (>=60 (CALC)); GFR FOR AFR.AMER. > 60 ML/MIN (>=60 (CALC)); POTASSIUM 4.1 mmol/l (3.5-5.1); SGOT/AST 59 u/l (14-36); SODIUM 124 mmol/l (137-146); TOTAL PROTEIN 7.7 g/dL (6.3-8.2)
[2020-05-01 17:42] VITALS: BP 159/71
== END 2020-05-01 18:08 | disposition left against medical advice (07) ==
LOC: ED 15:51
PROVIDERS: Student in an Organized Health Care Education/Training Program
DX: F10.129 Alcohol abuse with intoxication, unspecified (principal); E86.0 Dehydration; E11.9 Type 2 diabetes mellitus without complications; I25.10 Atherosclerotic heart disease of native coronary artery without angina pectoris; F17.210 Nicotine dependence, cigarettes, uncomplicated; Z79.4 Long term (current) use of insulin; Z91.19 Patient's noncompliance with other medical treatment and regimen

== ENCOUNTER 2020-10-01 18:34 | Emergency (ER) | payer MEDICARE, MEDICAID ==
[~2020-10-01] VITALS: Ht 162.6 cm; Wt 65.0 kg
[2020-10-01 19:01] LABS: HEMATOCRIT 38.7 % (37.0-47.0); HEMOGLOBIN 12.1 g/dl (12.0-16.0); IMMATURE GRANULOCYTES 0.4 % (0.0-5.0); MEAN CELL VOLUME 86.2 fL CALC (80.0-100.0); MEAN CORPUSCULAR HGB 26.9 pG CALC (26.0-32.0); MEAN CORPUSCULAR HGB CONC 31.3 g/dL CAL (32.0-36.0); NEUT# 10.77 thou/uL (2.00-7.15); RED BLOOD COUNT 4.49 mill/uL (4.20-5.60); RED CELL DISTRI WIDTH 15.4 % (11.5-15.5)
[2020-10-01 19:20] LABS: ALBUMIN 4.6 g/dL (3.2-5.0); ALKALINE PHOSPHATASE 132 u/l (38-126); AMYLASE 99 u/l (30-110); ANION GAP 11 (6-22 (CALC)); BILIRUBIN, TOTAL 0.5 mg/dL (0.0-1.4); BUN 14 mg/dL (7-17); BUN/CREATININE RATIO 19 (12-20 (CALC)); CARBON DIOXIDE 30 mmol/l (22-30); CHLORIDE 101 mmol/l (95-108); CREATININE 0.7 mg/dL (0.5-1.0); ETHYL ALCOHOL 0 mg/dl (0-30); GFR > 60 ML/MIN (>=60 (CALC)); GFR FOR AFR.AMER. > 60 ML/MIN (>=60 (CALC)); LIPASE 46 u/l (23-300); MAGNESIUM 2.1 mg/dL (1.6-2.3); SGOT/AST 36 u/l (14-36); SODIUM 139 mmol/l (137-146); TOTAL PROTEIN 8.4 g/dL (6.3-8.2)
[2020-10-01 19:21] LABS: ACT PARTIAL THROMBO TIME 21.5 SECONDS (20.0-32.5); PROTHROMBIN TIME 10.2 SECONDS (9.0-12.5)
[2020-10-01 19:30] LABS: URINE BILIRUBIN - DIPSTICK NEGATIVE (NEGATIVE); URINE BLOOD DIPSTICK SMALL (NEGATIVE); URINE COLOR YELLOW; URINE GLUCOSE - DIPSTICK >=1000 mg/dL (NEGATIVE); URINE KETONE TRACE mg/dL (NEGATIVE); URINE LEUK ESTERASE NEGATIVE (NEGATIVE); URINE NITRITE - DIPSTICK NEGATIVE (Negative); URINE PROTEIN - DIPSTICK 30 mg/dL (NEG-TRACE); URINE UROBILINOGEN - DIPSTICK 0.2 E.U./dL (0.2)
[2020-10-01 19:38] LABS: URINE BACTERIA FEW hpf
[2020-10-01 19:39] LABS: URINE SQUAMOUS EPITHELIAL CELL MANY EPI/hpf (0-FEW)
[2020-10-01] MEDS ORDERED: Levaquin PO (20:35)
[2020-10-01 22:23] VITALS: BP 114/64
== END 2020-10-01 22:20 | disposition left against medical advice (07) ==
LOC: ED 18:34
DX: R11.2 Nausea with vomiting, unspecified (principal); J18.9 Pneumonia, unspecified organism; E10.8 Type 1 diabetes mellitus with unspecified complications; F17.200 Nicotine dependence, unspecified, uncomplicated; F10.10 Alcohol abuse, uncomplicated; Z79.4 Long term (current) use of insulin; Z87.01 Personal history of pneumonia (recurrent); Z20.828 Contact with and (suspected) exposure to other viral communicable diseases

== ENCOUNTER 2020-11-12 00:13 | Emergency (ER) | payer MEDICARE, MEDICAID ==
[~2020-11-12] VITALS: Ht 162.6 cm; Wt 59.0 kg
[~2020-11-12 00:13] MED LIST changes: +Levaquin PO
[2020-11-12] MEDS ORDERED: PERCOCET 5/325M1 TAB PO (02:39)
[2020-11-12 03:14] VITALS: BP 141/65
== END 2020-11-12 03:13 | disposition home or self-care (01) ==
LOC: ED 00:13
PROC: 2W3LX1Z Immobilization of Right Lower Extremity using Splint (ICD-10-PCS; principal; 2020-11-12)
DX: S92.511A Displaced fracture of proximal phalanx of right lesser toe(s), initial encounter for closed fracture (principal); E11.9 Type 2 diabetes mellitus without complications; F17.210 Nicotine dependence, cigarettes, uncomplicated; X50.0XXA Overexertion from strenuous movement or load, initial encounter